=== PATIENT | male | born 1955 | race Caucasian/White ===

== ENCOUNTER 2021-01-19 19:36 | Emergency (ER) | payer OTHER ==
[2021-01-19 20:52] VITALS: O2SAT 96
[2021-01-19 20:55] LABS: Absolute Neutrophil Ct (ANC) 11.03 (1.4-6.9); BASOPHIL % 0.1 % (0.0-0.4); Basophil (Absolute #) 0.02 (0-0.4); Eosinophil % 0.6 % (0.00-5.0); Eosinophil (Absolute #) 0.08 (0-0.5); Hematocrit 43.5 % (42-50); Hemoglobin 14.4 gm/dl (12.5-18.0); Lymphocyte (Absolute #) 1.14 (1.0-4.6); Lymphocytes % 8.5 % (24.0-44.0); Mean Cell Volume 89.5 fl (78-100); Mean Corpuscular Hemoglobin 29.6 pg (26-32); Mean Corpuscular Hgb Concent. 33.1 g/dl (32-36); Mean Platelet Volume 9.3 fl (7.5-11.0); Monocyte (Absolute #) 1.13 (0.0-1.3); Monocytes % 8.4 % (0.0-12.0); Neutrophil % 82.4 % (36.0-66.0); Platelet Count 238 K/mm3 (150-450); Red Blood Count 4.86 M/mm3 (4.1-5.6); Red Cell Distribution Width 13.9 % (11.5-14.0); White Blood Count 13.4 K/mm3 (4.0-10.5)
[2021-01-19 20:57] LABS: Appearance CLEAR (CLEAR); Bilirubin NEGATIVE (NEGATIVE); Blood NEGATIVE Ery/ul (0-5); Glucose NEGATIVE (NEGATIVE); Ketones SMALL (NEGATIVE); Leukocyte Esterase NEGATIVE (NEGATIVE); Mucus SLIGHT /HPF (NEGATIVE); Nitrite NEGATIVE (NEGATIVE); Protein,Urine Dip NEGATIVE (Negative); Specific Gravity 1.013 (1.005-1.025); Urobilinogen NEGATIVE mg/dL (0-1)
[2021-01-19 21:12] LABS: ALBUMIN 4.2 g/dL (3.5-5.0); ALKALINE PHOSPHATASE 61 U/L (38-126); ANION GAP 13.8 MEQ/L (5-15); BLOOD UREA NITROGEN 12 mg/dL (9-20); CHLORIDE 102 mmol/L (98-107); Calcium 9.2 mg/dL (8.4-10.2); Carbon Dioxide 26 mmol/L (22-30); Creatinine 1 0.85 mg/dL (0.66-1.25); EST GLOMERULAR FILTRATION RATE > 60.0 ML/MIN; Glucose 134 mg/dL (74-106); LIPASE 307 U/L (23-300); Potassium 3.9 mmol/L (3.5-5.1); SGOT/AST 38 U/L (17-59); SGPT/ALT 28 U/L (0-50); SODIUM 138 mmol/L (137-145); Total Protein 7.3 g/dL (6.3-8.2)
--- NOTE | 2021-01-19 21:39 | ERPHSYRPT ---
- History of Present Illness Time Seen by Provider: 01/19/21 19:55 Historian: patient Exam Limitations: no limitations Patient Subjective Stated Complaint: pt states "I ate a baked potato and vomited after." Triage Nursing Assessment: pt ambulated into the er; pt is axo x4; c/o abd pain; pt states 11/14; pt states that he ate a potato at 1700; pt states that he vomited after eating; pt states that he has only vomited the one time; pt states that he has a dull upper gastric pain; pt states the pain began monday afternoon; pt states that he had little oral intake today; pt states that he laid around all day; pt states that he had a small BM this morning; pt c/o N/V; abd is round, soft, distended; hyperactive bowel sounds in all quads; hypert ension Physician History: Patient is a 65-year-old male presents to emergency department with complaints of epigastric pain. Symptoms started Monday. Symptoms have been progressive. Patient states he ate a baked potato today and symptoms worsen. Patient vomited once. Pain worse after eating. Pain currently rated 4 out of 10. No trauma no fever. No diarrhea. Patient had a normal bowel movement today. Symptoms are moderate in intensity. Eating worsens symptoms. Fasting improved symptoms. Patient is otherwise generally healthy. He voices no other complaints or concerns at this time. Timing/Duration: day(s) Activities at Onset: other (Postprandial pain.) Quality: aching Abdominal Pain Onset Location: epigastric Pain Radiation: no radiation Severity of Pain-Max: moderate Severity of Pain-Current: mild Modifying Factors: Improves With: other (Eating) Associated Symptoms: denies symptoms, vomiting, No fever/chills, No syncope Previous symptoms: no prior history Allergies/Adverse Reactions: No Known Drug Allergies Allergy (Verified 01/19/21 19:44) Home Medications: Lisinopril 10 mg [Zestril 10 MG] 10 mg PO DAILY 05/09/14 [History] Metformin HCl 500 mg [Glucophage 500 MG] 500 mg PO BID 05/09/14 [History] Hx Tetanus, Diphtheria Vaccination/Date Given: Yes Hx Influenza Vaccination/Date Given: Yes Hx Pneumococcal Vaccination/Date Given: No Travel Risk - International Travel Have you traveled outside of the country in past 3 weeks: No - Coronavirus Screening Are you exhibiting any of the following symptoms?: No Close contact with a COVID-19 positive Pt in past 14-21 Days: No - Vaccine Status Have you recieved a Covid-19 vaccination: Yes Language Teacher: Moderna - Vaccination Dates Date of 2cond Vaccination (if applicable): 11/26/20 - Review of Systems Constitutional: No Symptoms, No Fever, No Chills Eyes: No Symptoms Ears, Nose, & Throat: No Symptoms Respiratory: No Symptoms, No Cough, No Dyspnea Cardiac: No Symptoms, No Chest Pain, No Edema, No Syncope Abdominal/Gastrointestinal: No Symptoms, No Abdominal Pain, No Nausea, No Vomiting, No Diarrhea Genitourinary Symptoms: No Symptoms, No Dysuria Musculoskeletal: No Symptoms, No Back Pain, No Neck Pain Skin: No Symptoms, No Rash Neurological: No Symptoms, No Dizziness, No Focal Weakness, No Sensory Changes Psychological: No Symptoms Endocrine: No Symptoms Hematologic/Lymphatic: No Symptoms Immunological/Allergic: No Symptoms All Other Systems: Reviewed and Negative - Past Medical History Pertinent Past Medical History: Yes Neurological History: No Pertinent History ENT History: No Pertinent History Cardiac History: Hypertension Respiratory History: No Pertinent History Endocrine Medical History: Diabetes Type II Musculoskeletal History: Arthritis GI Medical History: No Pertinent History History: No Pertinent History Psycho-Social History: No Pertinent History Male Reproductive Disorders: No Pertinent History - Past Surgical History Past Surgical History: Yes Neuro Surgical History: No Pertinent History Cardiac: No Pertinent History Respiratory: No Pertinent History Gastrointestinal: Appendectomy Genitourinary: No Pertinent History Musculoskeletal: Orthopedic Surgery Male Surgical History: No Pertinent History Other Surgical History: Tonsillectomy and adenoidectomy, left hand surgery, cyst removal of lower right side of back - Social History Smoking Status: Never smoker Exposure to second hand smoke: No Drug Use: none Patient Lives Alone: No - Nursing Vital Signs Nursing Vital Signs: Initial Vital Signs Temperature 98.6 F 01/19/21 19:47 Pulse Rate 88 01/19/21 19:47 Respiratory Rate 20 01/19/21 19:47 Blood Pressure 146/101 01/19/21 19:47 O2 Sat by Pulse Oximetry 97 01/19/21 19:47 Pain Scale Pain Intensity 4 - Physical Exam General Appearance: no apparent distress, alert Eye Exam: PERRL/EOMI, eyes nml inspection Ears, Nose, Throat Exam: normal ENT inspection, pharynx normal, moist mucous membranes Neck Exam: normal inspection, non-tender, supple, full range of motion Respiratory Exam: normal breath sounds, lungs clear, No respiratory distress Cardiovascular Exam: regular rate/rhythm, normal heart sounds Gastrointestinal/Abdomen Exam: soft, No tenderness, No mass Back Exam: normal inspection, normal range of motion, No CVA tenderness, No vertebral tenderness Extremity Exam: normal inspection, normal range of motion, pelvis stable Neurologic Exam: alert, oriented x 3, cooperative, normal mood/affect, No motor deficits Skin Exam: normal color, warm, dry Lymphatic Exam: No adenopathy SpO2 Interpretation: normal SpO2: 96 O2 Delivery: Room Air - Course Nursing assessment & vital signs reviewed: Yes EKG Interpreted by Me: RATE (64), Sinus Rhythm, NORMAL AXIS, NORMAL INTERVALS Ordered Tests: Active Orders 24 hr Category Date Time Status EKG-ER Only STAT Care 01/19/21 21:39 Active IV Insertion STAT Care 01/19/21 21:31 Active ABDOMEN AND PELVIS W CONTRAST [CT] Stat Exams 01/19/21 21:50 Taken CBC W DIFF Stat Lab 01/19/21 20:34 Completed CMP Stat Lab 01/19/21 20:34 Completed LIPASE Stat Lab 01/19/21 20:34 Completed TROPONIN Q3H Lab 01/19/21 20:34 Completed TROPONIN Q3H Lab 01/19/21 23:30 Ordered TROPONIN Q3H Lab 01/20/21 02:30 Ordered TROPONIN Q3H Lab 01/20/21 05:30 Ordered TROPONIN Q3H Lab 01/20/21 08:30 Ordered UA W/RFX UR CULTURE Stat Lab 01/19/21 20:31 Completed Medication Summary Discontinued Medications Generic Name Dose Route Start Last Admin Trade Name Freq PRN Reason Stop Dose Admin Pantoprazole Sodium 40 mg 01/19/21 22:35 01/19/21 22:37 Protonix 40 Mg Iv IV 01/19/21 22:36 40 mg STAT ONE Administration Pantoprazole Sodium Confirm 01/19/21 22:35 Protonix 40 Mg Iv Administered 01/19/21 22:36 Dose 40 mg IV .Kwanji-MED ONE Lab/Rad Data: Laboratory Result Diagrams 01/19/21 20:34 01/19/21 20:34 Laboratory Results 01/19/21 01/19/2101/19/21 Range/Units 20:34 20:34 20:34 WBC 13.4 H (4.0-10.5) K/mm3 RBC 4.86 (4.1-5.6) M/mm3 Hgb 14.4 (12.5-18.0) gm/dl Hct 43.5 (42-50) % MCV 89.5 (78-100) fl MCH 29.6 (26-32) pg MCHC 33.1 (32-36) g/dl RDW 13.9 (11.5-14.0) % Plt Count 238 (150-450) K/mm3 MPV 9.3 (7.5-11.0) fl Gran % 82.4 H (36.0-66.0) % Eos # (Auto) 0.08 (0-0.5) Absolute Lymphs (auto) 1.14 (1.0-4.6) Absolute Monos (auto) 1.13 (0.0-1.3) Lymphocytes % 8.5 L (24.0-44.0) % Monocytes % 8.4 (0.0-12.0) % Eosinophils % 0.6 (0.00-5.0) % Basophils % 0.1 (0.0-0.4) % Absolute Granulocytes 11.03 H (1.4-6.9) Basophils # 0.02 (0-0.4) Sodium 138 (137-145) mmol/L Potassium 3.9 (3.5-5.1) mmol/L Chloride 102 (98-107) mmol/L Carbon Dioxide 26 (22-30) mmol/L Anion Gap 13.8 (5-15) MEQ/L BUN 12 (9-20) mg/dL Creatinine 0.85 (0.66-1.25) mg/dL Estimated GFR > 60.0 ML/MIN Glucose 134 H (74-106) mg/dL Calcium 9.2 (8.4-10.2) mg/dL Total Bilirubin 0.80 (0.2-1.3) mg/dL AST 38 (17-59) U/L ALT 28 (0-50) U/L Alkaline Phosphatase 61 (38-126) U/L Troponin I < 0.012 (0.000-0.034) ng/mL Serum Total Protein 7.3 (6.3-8.2) g/dL Albumin 4.2 (3.5-5.0) g/dL Lipase 307 H (23-300) U/L Urine Color (YELLOW) Urine Appearance (CLEAR) Urine pH (5-6) Ur Specific [place] (1.005-1.025) Urine Protein (Negative) Urine Ketones (NEGATIVE) Urine Blood (0-5) Franky/ul Urine Nitrite (NEGATIVE) Urine Bilirubin (NEGATIVE) Urine Urobilinogen (0-1) mg/dL Ur Leukocyte Esterase (NEGATIVE) Urine WBC (Auto) (0-5) /HPF Urine RBC (Auto) (0-2) /HPF U Epithel Cells (Auto) (FEW) /HPF Urine Bacteria (Auto) (NEGATIVE) /HPF Urine Mucus (Auto) (NEGATIVE) /HPF Urine Culture Reflexed (NO) Urine Glucose (NEGATIVE) mg/dL 01/19/21 Range/Units 20:31 WBC (4.0-10.5) K/mm3 RBC (4.1-5.6) M/mm3 Hgb (12.5-18.0) gm/dl Hct (42-50) % MCV (78-100) fl MCH (26-32) pg MCHC (32-36) g/dl RDW (11.5-14.0) % Plt Count (150-450) K/mm3 MPV (7.5-11.0) fl Gran % (36.0-66.0) % Eos # (Auto) (0-0.5) Absolute Lymphs (auto) (1.0-4.6) Absolute Monos (auto) (0.0-1.3) Lymphocytes % (24.0-44.0) % Monocytes % (0.0-12.0) % Eosinophils % (0.00-5.0) % Basophils % (0.0-0.4) % Absolute Granulocytes (1.4-6.9) Basophils # (0-0.4) Sodium (137-145) mmol/L Potassium (3.5-5.1) mmol/L Chloride (98-107) mmol/L Carbon Dioxide (22-30) mmol/L Anion Gap (5-15) MEQ/L BUN (9-20) mg/dL Creatinine (0.66-1.25) mg/dL Estimated GFR ML/MIN Glucose (74-106) mg/dL Calcium (8.4-10.2) mg/dL Total Bilirubin (0.2-1.3) mg/dL AST (17-59) U/L ALT (0-50) U/L Alkaline Phosphatase (38-126) U/L Troponin I (0.000-0.034) ng/mL Serum Total Protein (6.3-8.2) g/dL Albumin (3.5-5.0) g/dL Lipase (23-300) U/L Urine Color YELLOW (YELLOW) Urine Appearance CLEAR (CLEAR) Urine pH 6.0 (5-6) Ur Specific [place] 1.013 (1.005-1.025) Urine Protein NEGATIVE (Negative) Urine Ketones SMALL (NEGATIVE) Urine Blood NEGATIVE (0-5) Franky/ul Urine Nitrite NEGATIVE (NEGATIVE) Urine Bilirubin NEGATIVE (NEGATIVE) Urine Urobilinogen NEGATIVE (0-1) mg/dL Ur Leukocyte Esterase NEGATIVE (NEGATIVE) Urine WBC (Auto) NONE (0-5) /HPF Urine RBC (Auto) NONE (0-2) /HPF U Epithel Cells (Auto) NONE (FEW) /HPF Urine Bacteria (Auto) NONE (NEGATIVE) /HPF Urine Mucus (Auto) SLIGHT (NEGATIVE) /HPF Urine Culture Reflexed NO (NO) Urine Glucose NEGATIVE (NEGATIVE) mg/dL - Progress Progress: improved Progress Note: Case discussed with Dr. Gage who feels that it would be appropriate to discharge patient home on Protonix twice daily and outpatient follow-up. Patient instructed to take medications as instructed. Patient agrees to follow up with Too tomorrow morning for reevaluation. Patient received a dose of Protonix in our ED prior to discharge. Patient was updated on lab results as well as imaging study report. All questions were answered. Patient states he is ready for discharge. Pain well controlled. Vitals stable. All questions were answered. 01/19/21 22:51 Discussed with : Felipa Counseled pt/family regarding: lab results, diagnosis, need for follow-up, rad results - Departure Departure Disposition: Home Clinical Impression: Duodenitis, Elevated lipase Condition: Stable Critical Care Time: No Referrals: DAMION JAMESON [Primary Care Provider] - IAN NIEVES MD [ASSOCIATE STAFF] - Additional Instructions: Discharge/Care Plan JUDE HARMONNATHALIE RODRIGUEZ was seen on 01/19/21 in the Emergency Room. The patient was counseled regarding Diagnosis,Lab results, Imaging studies, need for follow up and when to return to the Emergency Room. Prescriptions given: Discharge Note I have spoken with the patient and/or caregivers. I have explained the patient's condition, diagnosis and treatment plan based on the information available to me at this time. I have answered the patient's and/or caregiver's questions and addressed any concerns. The patient and/or caregivers have as good understanding of the patient's diagnosis, condition and treatment plan as can be expected at this point. The vital signs have been stable. The patient's condition is stable and appropriate for discharge from the emergency department. The patient will pursue further outpatient evaluation with the primary care physician or other designated or consulting physician as outlined in the discharge instructions. The patient and/or caregivers are agreeable to this plan of care and follow-up instructions have been explained in detail. The patient and/or caregivers have received these instruction. The patient/and or caregivers are aware that any significant change in condition or worsening of symptoms should prompt an immediate return to this or the closest emergency department or call 911. Prescriptions: Pantoprazole 20 mg [Protonix 20MG Tablet] 20 mg PO BID 14 Days #28 tab
[2021-01-19 22:13] VITALS: PULSE 68
[2021-01-19] MEDS ORDERED: PROTONIX 40 MG IV IV ONE ×2 (22:35)
[2021-01-19 23:00] VITALS: BP 141/88
--- NOTE | 2021-01-20 08:43 | XRAY ---
Indication: Abdomen pain and nausea. Pancreatitis. Multiple contiguous axial images obtained through the abdomen and pelvis using 80 cc Isovue 370 contrast. Comparison: None Lung bases demonstrates minimal dependent atelectasis. No infiltrate or effusion. Heart not enlarged. Small hiatal hernia. Noncontrasted stomach and bowel loops appear nonobstructed. Descending duodenum demonstrates mild wall thickening with stranding favoring duodenitis. Adjacent head of pancreas demonstrates very minimal stranding probably reactive and less likely pancreatitis. Appendectomy reported. No free fluid/air. Mildly distended gallbladder without gallstones or biliary distention. Both kidneys enhance and excrete. Left lower kidney demonstrates a 6 cm cyst. Remaining liver, gallbladder, pancreas, spleen, adrenal glands, kidneys, ureters, and bladder are unremarkable. Mild scattered aortoiliac calcifications. No AAA or pathologic rectoperineal lymphadenopathy. Osseous structures intact with minimal/mild degenerative changes throughout the thoracolumbar spine. Impression: 1. Descending duodenal wall thickening and stranding favoring duodenitis. Adjacent pancreatic head stranding probably reactive and less likely pancreatitis. 2. Mild distended gallbladder without gallstones. Gallbladder sonogram may yield further information if clinically warranted. 3. Incidental small hiatal hernia and left renal cyst.
== END 2021-01-19 23:00 | disposition home or self-care (01) ==
LOC: ED 19:36
DX: K29.80 Duodenitis without bleeding (principal); R74.8 Abnormal levels of other serum enzymes; E11.9 Type 2 diabetes mellitus without complications; I10 Essential (primary) hypertension; Z79.899 Other long term (current) drug therapy
CPT/HCPCS: 36000; 36415; 74177; 80053; 81001; 83690; 84484; 85025; 93005; 96374; 99284

== ENCOUNTER 2023-09-13 09:34 | Emergency (ER) | payer MEDICARE ==
--- NOTE | 2023-09-13 09:36 | ERPHSYRPT ---
- History of Present Illness Time Seen by Provider: 09/13/23 09:36 Source: patient Exam Limitations: no limitations Physician History: This is a 68-year-old white male patient of Dr. Jameson who has a history of diabetes and hypertension and presents with intermittent left hip and left leg sharp stabbing pain posteriorly since around 2022. Patient denies any fall or acute injury. Symptoms have worsened since last . Patient has seen his chiropractor without much benefit. He is also used ice and heat, again, without much improvement. He is also used [id number] Tylenol and ibuprofen without benefit. Patient's primary care doctor is out of town and he does have an appointment to see Dr. Brooke on 09/14/2023 to discuss this medical issue. Patient is wanting an MRI. Patient's chiropractor told him that he could order an MRI but it would be out of patient's pocket and not covered by insurance if he is wanting it without the insurance approval. Patient denies chest pain. Patient denies shortness of breath Method of Injury: unknown Occurred: other (No acute fall or injury) Quality: intermittent, sharpness, stabbing Severity of Pain-Max: moderate Severity of Pain-Current: moderate Lower Extremities Pain: hip: left, leg: left (Posterior buttock and upper leg on the left side) Modifying Factors: Improves With: movement Associated Symptoms: other (Pain subsides when supine. However there is intermittent sharp stabbing pain when he is up and ambulating) Allergies/Adverse Reactions: No Known Drug Allergies Allergy (Verified 09/13/23 09:47) Home Medications: Lisinopril 10 mg [Zestril 10 MG] 20 mg PO DAILY 05/09/14 [History] Metformin HCl 500 mg [Glucophage 500 MG] 500 mg PO BID 05/09/14 [History] Aspirin 81 gm Chew [Baby Aspirin 81 mg Chew] 81 mg PO DAILY 09/13/23 [History] Hx Tetanus, Diphtheria Vaccination/Date Given: Yes Hx Influenza Vaccination/Date Given: Yes Hx Pneumococcal Vaccination/Date Given: No Travel Risk - International Travel Have you traveled outside of the country in past 3 weeks: No - Coronavirus Screening Are you exhibiting any of the following symptoms?: No Close contact with a COVID-19 positive Pt in past 14-21 Days: No - Vaccine Status Have you recieved a Covid-19 vaccination: Yes Material Lister: Moderna - Vaccination Dates Date of 2cond Vaccination (if applicable): 11/26/20 - Review of Systems Constitutional: No Symptoms Eyes: No Symptoms Ears, Nose, & Throat: No Symptoms Respiratory: No Symptoms Cardiac: No Symptoms Abdominal/Gastrointestinal: No Symptoms Genitourinary Symptoms: No Symptoms Musculoskeletal: Other (Left hip, left buttock and left upper posterior leg) Skin: No Symptoms Neurological: No Symptoms Psychological: No Symptoms Endocrine: No Symptoms Hematologic/Lymphatic: No Symptoms Immunological/Allergic: No Symptoms All Other Systems: Reviewed and Negative - Past Medical History Pertinent Past Medical History: Yes Neurological History: No Pertinent History ENT History: No Pertinent History Cardiac History: Hypertension Respiratory History: No Pertinent History Endocrine Medical History: Diabetes Type II Musculoskeletal History: Arthritis GI Medical History: No Pertinent History History: No Pertinent History Psycho-Social History: No Pertinent History Male Reproductive Disorders: No Pertinent History - Past Surgical History Past Surgical History: Yes Neuro Surgical History: No Pertinent History Cardiac: No Pertinent History Respiratory: No Pertinent History Gastrointestinal: Appendectomy Genitourinary: No Pertinent History Musculoskeletal: Orthopedic Surgery Male Surgical History: No Pertinent History Other Surgical History: Tonsillectomy and adenoidectomy, left hand surgery, cyst removal of lower right side of back - Social History Smoking Status: Never smoker Exposure to second hand smoke: No Drug Use: none Patient Lives Alone: No - Nursing Vital Signs Nursing Vital Signs: Initial Vital Signs Temperature 97.8 F 09/13/23 09:59 Pulse Rate 88 09/13/23 09:59 Respiratory Rate 18 09/13/23 09:59 Blood Pressure 177/99 09/13/23 09:59 O2 Sat by Pulse Oximetry 98 09/13/23 09:59 Pain Scale Pain Intensity 10 - Physical Exam General Appearance: no apparent distress, alert, anxiety Eyes, Ears, Nose, Throat Exam: normal ENT inspection, moist mucous membranes Neck Exam: normal inspection, non-tender, supple, full range of motion Cardiovascular/Respiratory Exam: chest non-tender, no respiratory distress Gastrointestinal/Abdominal Exam: non-tender Back Exam: normal inspection, normal range of motion, No CVA tenderness, No vertebral tenderness Hips Exam: right: non-tender, left: soft tissue tenderness, bilateral: normal inspection, normal range of motion, no evidence of injury Legs Exam: right leg: non-tender, left leg: soft tissue tenderness (Left upper posterior leg), bilateral leg: normal inspection, normal range of motion, no evidence of injury Knees Exam: bilateral knee: non-tender, normal inspection, normal range of motion, no evidence of injury Ankle Exam: bilateral ankle: non-tender, normal inspection, normal range of motion, no evidence of injury Foot Exam: bilateral foot: non-tender, normal inspection, normal range of motion, no evidence of injury Neuro/Tendon Exam: normal sensation, normal motor functions, normal tendon functions, responds to pain, no evidence tendon injury Mental Status Exam: alert, oriented x 3, cooperative Skin Exam: normal color, warm, dry SpO2 Interpretation: normal O2 Delivery: Room Air - Course Nursing assessment & vital signs reviewed: Yes Ordered Tests: Medication Summary Discontinued Medications Generic Name Dose Route Start Last Admin Trade Name Freq PRN Reason Stop Dose Admin Methylprednisolone Sodium 0 mg 09/13/23 10:33 Succinate 125 mg/ Sterile IM 09/13/23 10:34 Water 2 ml STAT ONE Orphenadrine Citrate 60 mg 09/13/23 10:32 Orphenadrine Citrate 60 Mg/2 Ml Vial IM 09/13/23 10:33 STAT ONE Oxycodone/Acetaminophen 1 tab 09/13/23 10:32 Oxycodone Hcl/Apap 5 Mg/325 Mg Tablet PO 09/13/23 10:33 STAT STA - Progress Progress: improved, pain not gone completely Progress Note: 09/13/23 10:45 This patient's medical issue is 1 of low complexity. The level of complexity and the workup performed is based on review of the patient's past medical history, review the patient's medication list, review of the patient's drug allergy list, history of present illness and physical findings on examination. The patient was offered x-rays of his lower back and left hip. He declines at this time. He is wanting an MRI performed. However, this is a study we will not be ordering through the emergency department. There is been no history of acute trauma or fall injury. Patient has an appointment to see Dr. Brooke tomorrow, 09/14/2023. We agreed upon providing the patient with an injection of orphenadrine, an injection of Solu-Medrol and an oral Percocet 5/325. We will then remotely send a prescription for orphenadrine and prednisone to his pharmacy. He was told to make sure he monitors his blood sugar levels while he is on the steroids. He was also told to keep his appointment with Dr. Brooke on 09/14/2023. Counseled pt/family regarding: diagnosis, need for follow-up Medical Desision Making - Independent Historian Additional History obtained from: Spouse - Diagnostic Testing Diagnostic test were ordered, analyzed, and reviewed by me: No - Risk of complications The pt has a mod risk of morbidity or mortality based on: Need for prescription drug management - Departure Departure Disposition: Home Clinical Impression: Left sided sciatica Condition: Stable Critical Care Time: No Referrals: DAMION JAMESON MD [Primary Care Provider] - Follow up/PCP as directed Additional Instructions: Take your medications as prescribed. Monitor your blood sugar and blood pressure levels closely while taking the steroids. Keep your appointment with Dr. Brooke on 09/14/2023. Prescriptions: Prednisone 10 mg [Deltasone 10 mg] 10 mg PO TID #12 tablet Orphenadrine Citrate 100 mg [Norflex 100 MG Tablet] 100 mg PO BID #10 tab
[2023-09-13 10:00] VITALS: PULSE 88; RESP 18; TEMP 97.8
[2023-09-13 10:10] VITALS: BP 140/89; O2SAT 94
[2023-09-13] MEDS ORDERED: Norflex 60 MG/2 ML ONE (10:45)
[2023-09-13] MEDS ORDERED: Sterile H2O 10 ml IJ ONE (10:45)
[2023-09-13] MEDS ORDERED: PERCOCET TABLET 5/325MG ONE (10:45)
[2023-09-13] MEDS ORDERED: solu-MEDROL ONE (10:45)
[2023-09-13] MEDS: Norflex 60 MG/2 ML IM ONE (10:49)
[2023-09-13] MEDS: solu-MEDROL 125 MG, Sterile H2O 10 ml 2 ML IM ONE (10:49)
[2023-09-13] MEDS: PERCOCET TABLET 5/325MG PO STA (10:50)
== END 2023-09-13 11:23 | disposition home or self-care (01) ==
LOC: ED 09:34
DX: M54.32 Sciatica, left side (principal); I10 Essential (primary) hypertension; E11.9 Type 2 diabetes mellitus without complications; Z79.84 Long term (current) use of oral hypoglycemic drugs; Z79.52 Long term (current) use of systemic steroids; Z79.899 Other long term (current) drug therapy
CPT/HCPCS: 96372; 99283; J2360; J2930; A9270-GY

== ENCOUNTER 2023-09-19 16:26 | Emergency (ER) | payer MEDICARE ==
[2023-09-19 16:51] VITALS: RESP 18; TEMP 97.9
[2023-09-19 18:15] VITALS: O2SAT 97
[2023-09-19] MEDS ORDERED: DECADRON 10MG INJ. ONE (19:29)
[2023-09-19] MEDS: DECADRON 10MG INJ. IM ONE (19:31)
--- NOTE | 2023-09-19 19:33 | ERPHSYRPT ---
- History of Present Illness Time Seen by Provider: 09/19/23 16:45 Source: patient Exam Limitations: no limitations Patient Subjective Stated Complaint: pt states he has pain with walking Triage Nursing Assessment: pt came into the er via wheelchair; pt is axo x4; c/o back pain; c/o left back; no deformity present to back; no tenderness present to back; pt denies fall or injury; skin PDW; no respiratory distress; vitals wnl Physician History: Since 8-year-old male history of sciatica presents emergency department for evaluation of pain left side of low back that radiates down his left lower leg. Pain occurs upon weightbearing. Patient states he has no pain at rest. No trauma no fever no recent back procedure. No change in bowel bladder function. No lower extremity weakness. Symptoms are moderate in intensity when they occur. Patient has been treated with prednisone and muscle relaxer for this problem some relief. However symptoms appear to be reoccurring. at bedside. They voiced no other complaints or concerns at this time. Portions of this note were created with voice recognition technology. There may be grammatical, spelling, punctuation or sound alike errors Timing/Duration: today Method of Injury: unknown Quality: aching Back Pain Location: lumbar spine Back Pain Radiation: upper legs Severity of Pain-Max: moderate Severity of Pain-Current: mild Modifying Factors: Improves With: other (No pain at rest. It occurs upon weightbearing) Associated Symptoms: denies symptoms, No urinary incontinence, No loss of bowel control Previous symptoms: no prior history Allergies/Adverse Reactions: No Known Drug Allergies Allergy (Verified 09/13/23 09:47) Home Medications: Lisinopril 10 mg [Zestril 10 MG] 20 mg PO DAILY 05/09/14 [History] Metformin HCl 500 mg [Glucophage 500 MG] 500 mg PO BID 05/09/14 [History] Aspirin 81 gm Chew [Baby Aspirin 81 mg Chew] 81 mg PO DAILY 09/13/23 [History] Hx Tetanus, Diphtheria Vaccination/Date Given: Yes Hx Influenza Vaccination/Date Given: Yes Hx Pneumococcal Vaccination/Date Given: No Travel Risk - International Travel Have you traveled outside of the country in past 3 weeks: No - Coronavirus Screening Are you exhibiting any of the following symptoms?: No Close contact with a COVID-19 positive Pt in past 14-21 Days: No - Vaccine Status Have you recieved a Covid-19 vaccination: Yes Rn Vascular: Moderna - Vaccination Dates Date of 2cond Vaccination (if applicable): 11/26/20 - Review of Systems Constitutional: No Symptoms, No Fever, No Chills Eyes: No Symptoms Ears, Nose, & Throat: No Symptoms Respiratory: No Symptoms, No Cough, No Dyspnea Cardiac: No Symptoms, No Chest Pain, No Edema, No Syncope Abdominal/Gastrointestinal: No Symptoms, No Abdominal Pain, No Nausea, No Vomiting, No Diarrhea Genitourinary Symptoms: No Symptoms, No Dysuria Musculoskeletal: No Symptoms, No Back Pain, No Neck Pain Skin: No Symptoms, No Rash Neurological: No Symptoms, No Dizziness, No Focal Weakness, No Sensory Changes Psychological: No Symptoms Endocrine: No Symptoms Hematologic/Lymphatic: No Symptoms Immunological/Allergic: No Symptoms All Other Systems: Reviewed and Negative - Past Medical History Pertinent Past Medical History: Yes Neurological History: No Pertinent History ENT History: No Pertinent History Cardiac History: Hypertension Respiratory History: No Pertinent History Endocrine Medical History: Diabetes Type II Musculoskeletal History: Arthritis GI Medical History: No Pertinent History History: No Pertinent History Psycho-Social History: No Pertinent History Male Reproductive Disorders: No Pertinent History - Past Surgical History Past Surgical History: Yes Neuro Surgical History: No Pertinent History Cardiac: No Pertinent History Respiratory: No Pertinent History Gastrointestinal: Appendectomy Genitourinary: No Pertinent History Musculoskeletal: Orthopedic Surgery Male Surgical History: No Pertinent History Other Surgical History: Tonsillectomy and adenoidectomy, left hand surgery, cyst removal of lower right side of back - Social History Smoking Status: Never smoker Exposure to second hand smoke: No Drug Use: none Patient Lives Alone: No - Nursing Vital Signs Nursing Vital Signs: Initial Vital Signs Temperature 97.9 F 09/19/23 16:39 Pulse Rate 85 09/19/23 16:39 Respiratory Rate 18 09/19/23 16:39 Blood Pressure 139/56 09/19/23 16:39 O2 Sat by Pulse Oximetry 97 09/19/23 16:39 Pain Scale Pain Intensity [Left Back] 0 Pain Intensity 0 - Physical Exam General Appearance: no apparent distress, alert Eye Exam: PERRL/EOMI, eyes nml inspection Neck Exam: normal inspection, non-tender, supple, full range of motion, No meningismus, No midline tenderness Respiratory Exam: normal breath sounds, lungs clear, No respiratory distress Cardiovascular Exam: regular rate/rhythm, normal heart sounds Gastrointestinal Exam: soft, No tenderness, No mass Extremity Exam: normal inspection, normal range of motion, No calf tenderness, No pedal edema Neurologic Exam: alert, oriented x 3, cooperative, outsole caser II-XII nml as tested, normal mood/affect, nml station & gait, sensation nml, No motor deficits Skin Exam: normal color, warm, dry, No rash Lymphatic Exam: No adenopathy SpO2 Interpretation: normal SpO2: 97 O2 Delivery: Room Air - Course Nursing assessment & vital signs reviewed: Yes - Radiology Exams L-Spine X-ray Interpretation: Teleradiologist Report (Stable mild left L5-S1 degenerative disc disease compared to 01/19/2021. No new acute findings) Ordered Tests: Active Orders 24 hr Category Date Time Status LUMBAR SPINE W/O [CT] Stat Exams 09/19/23 16:51 Taken Medication Summary Generic Name Dose Route Start Last Admin Trade Name Levarq PRN Reason Stop Dose Admin Dexamethasone Sodium Phosphate 8 mg 09/19/23 19:27 Dexamethasone Sod Phosphate 10 Mg/Ml IM 09/19/23 19:28 STAT ONE - Progress Progress: improved Progress Note: C8-year-old male presents to our ED with left lower back pain with radiation down his left upper leg. Pain worse upon weightbearing pain improved with rest. Patient has been managed for this sciatica in the past with prednisone. Physical exam reveals no back tenderness. Patient received a IM dose of Decadron. CT lumbar spine revealed degenerative disc disease with no acute findings as compared to 01/19/2021. Portions of this note were created with voice recognition technology. There may be grammatical, spelling, punctuation or sound alike errors Complexity problem addressed is moderate acute complicated No critical care time Complexity of data reviewed and analyzed is moderate. Test ordered test revi ewed. Results analyzed and correlated clinically with history and physical examination. In light of patient's low back pain and referral pain down the left leg and the findings of degenerative disc disease and patient's clinical observation of pain with weightbearing it appears the patient is likely experiencing a pinched nerve/sciatica down the left lower extremity Risk of complication and or risk of morbidity/mortality patient management is moderate. Prescription for Toradol forwarded to patient's pharmacy. Vital stable. Time spent to discharge patient is approximately 15 minutes. Plan of care established for shared decision making. No social determinants of health present impede follow-up. Portions of this note were created with voice recognition technology. There may be grammatical, spelling, punctuation or sound alike errors 09/19/23 19:36 Counseled pt/family regarding: diagnosis, need for follow-up, rad results - Departure Departure Disposition: Home Clinical Impression: Degenerative disc disease, Sciatica Condition: Stable Critical Care Time: No Referrals: DAMION JAMESON MD [Primary Care Provider] - Follow up/PCP as directed Additional Instructions: Discharge/Care Plan NATHALIE ROQUE JR was seen on 09/19/23 in the Emergency Room. The patient was counseled regarding Diagnosis,Lab results, Imaging studies, need for follow up and when to return to the Emergency Room. Prescriptions given: Discharge Note I have spoken with the patient and/or caregivers. I have explained the patient's condition, diagnosis and treatment plan based on the information available to me at this time. I have answered the patient's and/or caregiver's questions and addressed any concerns. The patient and/or caregivers have as good understanding of the patient's diagnosis, condition and treatment plan as can be expected at this point. The vital signs have been stable. The patient's condition is stable and appropriate for discharge from the emergency department. The patient will pursue further outpatient evaluation with the primary care physician or other designated or consulting physician as outlined in the discharge instructions. The patient and/or caregivers are agreeable to this plan of care and follow-up instructions have been explained in detail. The patient and/or caregivers have received these instruction. The patient/and or caregivers are aware that any significant change in condition or worsening of symptoms should prompt an immediate return to this or the closest emergency department or call 911. Prescriptions: Ketorolac Trometh 10 mg Tab [TORAdol 10 MG TABLET] 10 mg PO TID 5 Days #15 tablet
[2023-09-19 19:38] VITALS: BP 118/83; PULSE 63
--- NOTE | 2023-09-20 08:41 | XRAY ---
Indication: Pain with walking 2 months. No known injury. Multiple contiguous axial images obtained through the lumbar spine. Sagittal and coronal reformatted images obtained. Comparison: CT abdomen/pelvis January 19, 2021. L5-S1 level demonstrates grossly stable appearing mild broad-based disc osteophyte complex and mild right degenerative facet arthropathy. Otherwise grossly negative for large disc herniation or spinal canal stenosis. Sagittal and coronal reformatted images again demonstrates normal alignment with minimal L5-S1 disc space narrowing. No acute compression fracture sublocation. Visualized noncontrasted soft tissues again demonstrates incompletely visualized left renal cyst, sigmoid diverticulosis, and minimal aortoiliac calcifications. No new nonobstructing left renal punctate calculus. Impression: 1. Stable L5-S1 degenerative disc disease. 2. Again chronic findings including left renal cyst, nonobstructing left renal punctate calculus, sigmoid diverticulosis, and arteriosclerotic disease. 3. Remaining CT lumbar spine is negative.
== END 2023-09-19 19:56 | disposition home or self-care (01) ==
LOC: ED 16:26
DX: M51.17 Intervertebral disc disorders with radiculopathy, lumbosacral region (principal); I10 Essential (primary) hypertension; E11.9 Type 2 diabetes mellitus without complications; Z79.84 Long term (current) use of oral hypoglycemic drugs; Z79.899 Other long term (current) drug therapy
CPT/HCPCS: 72131; 96372; 99283; J1100